=== PATIENT | male | born 1970 | race Caucasian/White ===

== ENCOUNTER 2018-06-05 19:17 | Observation (INO) | payer BC ==
[~2018-06-05 19:17] MED LIST: ISOVUE-370 76%-LOCM 1 ML ONE
[2018-06-05 19:39] LABS: #Basophils 0.1 thou/uL (0.0-0.2); #Eosinphils 0.1 thou/uL (0.0-0.7); #Lymphocytes 1.4 thou/uL (1.20-3.40); #Monocytes 0.8 thou/uL (0.11-0.59); %Basophils 1.2 % (0.0-1.0); %Eosinophils 1.1 % (0.0-10.0); %Lymphocytes 16.4 % (21.0-51.0); %Monocytes 9.3 % (0.0-10.0); Hemoglobin 16.2 g/dL (14.0-18.0); Mean Corpuscular HGB CONC 35.3 g/dL (32.0-36.0); Mean Corpuscular Hemoglobin 31.7 pg (27.0-31.0); Mean Corpuscular Volume 89.7 fL (78.0-98.0); Mean Platelet Volume 7.7 fL (7.4-10.4); Platelet Count 248 thou/uL (130-400); RBC Distribution Width 11.3 % (11.5-14.5); Red Blood Cell (RBC) Count 5.12 mill/uL (4.70-6.10); White Blood Cell (WBC) Count 8.3 thou/uL (4.8-10.8)
[2018-06-05] MEDS ORDERED: Ketorolac Tromethamine 30 MG/ML VIAL ONE (19:59)
[2018-06-05 20:01] LABS: ALT (SGPT) 40 U/L (8-55); AST (SGOT) 24 U/L (5-34); Albumin 4.9 g/dL (3.5-5.0); Alkaline Phosphatase 51 U/L (40-150); Anion Gap 17 mmol/L (10-20); BUN (Urea Nitrogen) 12 mg/dL (8.9-20.6); Bilirubin, Total 0.8 mg/dL (0.2-1.2); CK (CPK) 93 U/L (30-200); Calc. Creatinine Clearance 0 mL/min (70-130); Calcium 10.5 mg/dL (7.8-10.44); Carbon Dioxide 19 mmol/L (22-29); Chloride 106 mmol/L (98-107); Estimated GFR-MDRD 82; Globulin 2.7 g/dL (2.4-3.5); Glucose 95 mg/dL (70-105); Lipase 17 U/L (8-78); Potassium 3.8 mmol/L (3.5-5.1); Protein, Total 7.6 g/dL (6.0-8.3); Sodium 138 mmol/L (136-145)
[2018-06-05] MEDS ORDERED: Ondansetron PF 4 MG/2 ML Vial ONE (21:27)
[2018-06-05] MEDS ORDERED: Morphine 4 MG/ML VIAL ONE ×4 (21:27→23:57)
[2018-06-05] MEDS ORDERED: Mag-Al 1200 mg/1200 mg/30 ML UDCUP ONE (21:28)
[2018-06-05] MEDS ORDERED: Lidocaine Viscous Sol 2% 15 ml UD Cup ONE (21:28)
--- NOTE | 2018-06-05 22:05 | ULT ---
ULTRASOUND ABDOMEN LIMITED: (RIGHT UPPER QUADRANT) 06/05/2018 HISTORY: A 47-year-old female with nausea, vomiting, and distended abdomen. FINDINGS: Gallbladder: Numerous tiny, mobile gallstones, a few millimeters in size each, in the proximal body and neck of gallbladder. Additional multiple gallbladder polyps, also a few millimeters in size, vs adherent gallstones. No mural thickening or pericholecystic edema. Positive tenderness over the gal lbladder. Common duct: 4 mm. Liver: Diffusely increased echogenicity, which may or may not represent a fatty liver. Pancreas: Nonspecific sonographic appearance. Right kidney: No hydronephrosis. IMPRESSION: 1. Positive for cholelithiasis. 2. Question multiple tiny gallbladder polyps. 3. Questionable hepatic steatosis. CLYDE Mckeon POS: RIC
[2018-06-05 22:46] LABS: Bilirubin Negative (Negative); Blood, Urine Negative (Negative); Clarity CLOUDY (Clear); Glucose, Urine (Dipstick) Negative (Negative); Leukocyte Trace (Negative); Nitrite Negative (Negative); Protein, Urine (Dipstick) Trace mg/dL (Neg-Trace); Specific Gravity, Urine 1.022 (1.002-1.036); pH, Urine 7.5 (5.0-9.0)
[2018-06-05 22:47] LABS: Bacteria/HPF None Seen HPF (None Seen); Hyaline Casts/LPF 0-3 HYALINE CAST LPF (0-3 Hyaline); Pathc Cast-AUWi Flag 0.29 (0-2.49); RBC/HPF 0-3 HPF (0-3); Squamous Epithelial 0-3 HPF (0-3); WBC/HPF 0-3 HPF (0-3)
--- NOTE | 2018-06-05 23:16 | CT ---
CT ABDOMEN WITH CONTRAST CT PELVIS WITH CONTRAST: DATE: 06/05/2018 TIME: 10:48 p.m. HISTORY: A 47-year-old male with epigastric pain. TECHNIQUE: IV injection of iodinated contrast media: Isovue. Oral contrast media: Not administered. FINDINGS: There is a dense, dependent layer of a large number of fine, tiny calcified gallstones within the bod y of the gallbladder and some in the fundus. No pericholecystic fluid or edema. There is a 1 cm cys t at the anterior parenchyma of the left renal mid pole. Otherwise, the bilateral kidneys, abdominal aorta, pancreas, adrenals, and spleen are normal. No focal solid or cystic hepatic lesion. No hepa tomegaly. No small bowel dilation No ascites or pneumoperitoneum. Empty urinary bladder. Appendix is surgically absent, and there is a calcified suture line at the tip of the cecum. No colonic dive rticulitis. The lung bases are grossly clear. IMPRESSION: 1. Cholelithiasis. 2. Status post appendectomy. 3. Small left renal cyst. CLYDE Mckeon POS: RIC
[2018-06-05] MEDS ORDERED: Levofloxacin 500 mg/D5W 100 ml Premix Bag ONE (23:36)
[2018-06-06] MEDS ORDERED: Sodium Chloride 0.9% 1,000 ML IV SCH (00:54)
[2018-06-06] MEDS ORDERED: Ondansetron PF 4 MG/2 ML Vial IVP PRN (00:54)
[2018-06-06 00:56] VITALS: BMI 28.5
[2018-06-06] MEDS ORDERED: Morphine 4 MG/ML VIAL SLOW IVP PRN (00:56)
[2018-06-06] MEDS ORDERED: Ketorolac Tromethamine 30 MG/ML VIAL IVP PRN (06:50)
[2018-06-06] MEDS ORDERED: Acetaminophen 1,000 MG in Premix Bag 1 BAG IVPB PRN (06:50)
[2018-06-06] MEDS ORDERED: Lactated Ringer's 1,000 ML IV SCH (07:00)
[2018-06-06] MEDS ORDERED: Ketorolac Tromethamine 30 MG/ML VIAL IVP SCH (07:00)
[2018-06-06] MEDS ORDERED: Acetaminophen 1,000 MG in Premix Bag 1 BAG IVPB SCH (07:00)
--- NOTE | 2018-06-06 09:03 | HP ---
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 He has had 7-week history of epigastric pain, intermittent, this episode being more severe, presented to the emergency room, being evaluated, noting normal white count, normal liver function test, normal renal function. CAT scan of the abdomen and pelvis noting cholelithiasis and ultrasound noting cholelithiasis, normal bile duct caliber 4 mm. ALLERGIES: NONE. SOCIAL HISTORY: Tobacco none. Alcohol socially. MEDICATIONS: None routinely except for Lexapro 10 mg p.m. PAST SURGICAL HISTORY: The patient in the past had a ruptured appendicitis, undergoing CT-guided drainage. He developed hepatic abscess requiring PICC line, intravenous antibiotics and underwent a laparoscopic interval appendectomy. REVIEW OF SYSTEMS: Ten-point noncontributory. He has had a colonoscopy in the past. FAMILY HISTORY: Negative. PHYSICAL EXAMINATION: VITAL SIGNS: 6 feet 4 inches, 134 pounds, 28 BMI. Temperature 98.2, heart rate 77, blood pressure 104/65. HEAD, EARS, EYES, NOSE AND THROAT: Unremarkable. LUNGS: Clear to auscultation. CARDIAC: Regular rate and rhythm without murmur or gallop. ABDOMEN: Soft. Minimal tenderness in the epigastric right upper quadrant. No guarding or rebound. EXTREMITIES: Unremarkable. ASSESSMENT/PLAN: Cholecystitis/cholelithiasis. I recommend laparoscopic video cholecystectomy. Risks of infection, bleeding, visceral and biliary injury explained, open procedure discussed. Risks and benefits discussed, questions answered. PLAN: Laparoscopic cholecystectomy and probably discharge home later today. Job ID: [id number]
[2018-06-06] MEDS ORDERED: Levofloxacin 500 mg/D5W 100 ml Premix Bag ONE (09:45)
[2018-06-06] MEDS ORDERED: Bupivacaine HCl 0.5%/Epinephrine 1:200,000/PF 30 ml Vial ONE (10:03)
[2018-06-06] MEDS ORDERED: Fentanyl 100 MCG/2 ML VIAL ONE ×2 (10:06→11:20)
[2018-06-06] MEDS ORDERED: Meperidine HCl/PF 25 MG/ML VIAL SLOW IVP PRN (10:33)
[2018-06-06] MEDS ORDERED: Promethazine HCl 25 MG/ML VIAL IM PRN (10:33)
[2018-06-06] MEDS ORDERED: Ondansetron HCl/PF 4 MG/2 ML Vial IVP PRN (10:33)
[2018-06-06] MEDS ORDERED: Promethazine HCl 25 MG/ML VIAL SLOW IVP PRN (10:33)
[2018-06-06] MEDS ORDERED: traMADol HCl 50 MG TAB PO PRN ×2 (11:10)
[2018-06-06] MEDS ORDERED: Acetaminophen 500 MG TAB PO PRN (11:10)
[2018-06-06] MEDS ORDERED: Ibuprofen 600 MG TAB PO PRN (11:10)
--- NOTE | 2018-06-06 11:56 | OP ---
DATE OF PROCEDURE: 06/06/2018 PREOPERATIVE DIAGNOSES: Acute cholecystitis, cholelithiasis, chronic cholecystitis. POSTOPERATIVE DIAGNOSES: Acute cholecystitis, cholelithiasis, chronic cholecystitis with hydrops of the gallbladder, cystic duct outlet obstruction. PROCEDURE PERFORMED: Laparoscopic video cholecystectomy. ANESTHESIA: General, local 0.5% Marcaine with epinephrine 30 mL used. DESCRIPTION OF PROCEDURE: The patient was taken to the operating room, where under general anesthesia, abdomen was clipped of hair, prepared with ChloraPrep and draped in routine fashion. Local anesthetic was infiltrated into the skin and subcutaneous tissue about each port site. Infraumbilical incision was made. Pneumoperitoneum to 15 mmHg obtained with a Veress needle, replaced with a 5 port, and laparoscope inserted. Right subxiphoid incision was made and 11 port placed. Right subcostal incision was made, midclavicular and anterior axillary lines, and 5 mm port was placed. Liver appeared to be normal. Gallbladder was acutely distended and inflamed with thickened edematous wall. Fundus was grasped with some difficulty, reflected cephalad. Infundibulum was grasped and reflected laterally. Cystic artery and duct dissected free. Critical view obtained. Cystic artery and duct double clipped proximally and divided. Gallbladder dissected free from liver bed obtaining good hemostasis prior to division of the final peritoneal attachments. Gallbladder and contents removed. Subxiphoid fascia was approximated with 0 Vicryl [id number] suture. Right gutter and subhepatic space irrigated with heparinized saline solution. Irrigant evacuated. Good hemostasis noted. Irrigant and pneumoperitoneum evacuated. All instruments were removed and all skin incisions were approximated with interrupted subdermal 4-0 Monocryl and Haring glue applied. Job ID: [id number]
[2018-06-06] MEDS ORDERED: Dexamethasone 20 MG/5 ML VIAL ONE (14:02)
[2018-06-06] MEDS ORDERED: Ondansetron PF 4 MG/2 ML Vial ONE (14:02)
[2018-06-06] MEDS ORDERED: PHENYLEPHRINE-NS 100 MCG/ML 10 ML SYRINGE ONE (14:02)
[2018-06-06] MEDS ORDERED: ePHEDrine/0.9% NaCl/PF SYRINGE 50 mg/10 ml ONE (14:02)
[2018-06-06] MEDS ORDERED: PROPOFOL 200 MG/20 ML VIAL ONE (14:02)
[2018-06-06] MEDS ORDERED: Lidocaine 1% PF 5 ML VIAL ONE (14:02)
[2018-06-06] MEDS ORDERED: Rocuronium Bromide 10 MG/ML (10ML VIAL) ONE (14:02)
[2018-06-06 15:40] VITALS: BP 142/84; TEMP 98
[2018-06-06] MEDS ORDERED: Escitalopram Oxalate 10 mg Tablet PO SCH (21:00)
--- NOTE | 2018-06-07 06:59 | DIS ---
DATE OF ADMISSION: 06/06/2018 DATE OF DISCHARGE: 06/06/2018 DISCHARGE DIAGNOSES: 1. Acute chronic cholecystitis. 2. Hydrops of the gallbladder. 3. Cholelithiasis. PROCEDURES: 1. Ultrasound of the gallbladder. 2. Normal liver function tests. CAT scan of the abdomen and pelvis, cholelithiasis, otherwise normal. PROCEDURE PERFORMED: Laparoscopic video cholecystectomy. 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 CAT scan ultrasound revealing cholecystitis, cholelithiasis, admitted, received intravenous antibiotics and fluids overnight and underwent laparoscopic video cholecystectomy and discharged home with diet and activity as tolerated. Diet as tolerated. No lifting restriction. Follow up my office in 2 to 3 weeks. [employer] #21 refill given for pain refractory to [id number] Tylenol and ibuprofen. Job ID: [id number]
--- NOTE | 2018-06-10 13:06 | EKG ---
Test Reason : Blood Pressure : / mmHG Vent. Rate : 075 BPM Atrial Rate : 075 BPM P-R Int : 148 ms QRS Dur : 082 ms QT Int : 358 ms P-R-T Axes : 033 048 061 degrees QTc Int : 399 ms Normal sinus rhythm Normal ECG Confirmed by FERCHO ROTH ([id number]), editor producer GURPREET LOERA ([id number]) on 06/10/2018 1:06:38 PM Referred By: Confirmed By:FERCHO ROTH
== END 2018-06-06 14:20 | disposition home or self-care (01) ==
LOC: ERS 19:17 → INTOOBSV 06-06 00:48 → T4-B 06-06 00:48
PROVIDERS: ADMIT Specialist; ATTEND Specialist
PROC: 0FT44ZZ Resection of Gallbladder, Percutaneous Endoscopic Approach (ICD-10-PCS; principal; 2018-06-06)
DX: K80.13 Calculus of gallbladder with acute and chronic cholecystitis with obstruction (principal); K82.1 Hydrops of gallbladder; Q61.01 Congenital single renal cyst
CPT/HCPCS: 74177; 76705; 80053; 81003; 81015; 82550; 83690; 84484; 85025; 88304; 93005; 96361; 96365; 96372; 96374; 96375; 96376; G0378; J0131; J0670; J1100; J1885; J1956; J2001; J2270; J2405; J2704; J3010; Q9966